=== PATIENT | female | born 1995 | race Caucasian/White ===

== ENCOUNTER 2019-12-13 09:34 | Outpatient (CLI) | payer BC, SELFPAY ==
--- NOTE | 2019-12-13 10:10 | US_ITS ---
WS: [id number] ULTRASOUND EARLY TECHNIQUE: Transabdominal sonography of the pelvis was performed. Followed by transvaginal sonography to better evaluate the uterus and ovaries. CLINICAL INFORMATION: SUPERVISION, OTHER NORMAL LMP: 10/01/2019 Beta hCG: Unknown. COMPARISON: None. FINDINGS: UTERUS AND GESTATIONAL SAC Intrauterine gestations: Estimated gestational age: 9w2d. Estimated delivery 8 19,020 Yolk sac: 0.3 cm. [place] rump length (CRL): 2.6 cm. heart motion: 171 BPM. Subchorionic hemorrhage: None. Movement visualized OVARIES Right ovary: Not seen Left ovary: Left ovarian cyst measuring 1.6 x 1.5 cm FREE FLUID None. 2. Estimated gestational age: 9w2d 3. Movement and cardiac activity visualized. 4. Right ovary is not seen. 1.6 cm left ovarian cyst. US/US OB <= 14 weeks fetus [id number] IMPRESSION: 1. Single live intrauterine .
== END 2019-12-13 09:35 | disposition home or self-care (01) ==
PROVIDERS: Family Provider Family Medicine; PCP Family Medicine; Visit Provider Family Medicine
DX: O34.81 Maternal care for other abnormalities of pelvic organs, first trimester (principal); N83.201 Unspecified ovarian cyst, right side; Z3A.09 9 weeks gestation of pregnancy
CPT/HCPCS: 76801

== ENCOUNTER 2020-02-27 11:05 | Outpatient (CLI) | payer BC, SELFPAY ==
--- NOTE | 2020-02-27 11:00 | US_ITS ---
WS: [id number] ULTRASOUND OB COMPLETE TECHNIQUE: Complete ultrasound. Transabdominal and transvaginal. CLINICAL INFORMATION: SUPERVISION OF NORMAL COMPARISON: December 13, 2019 FINDINGS: Cervix measures 4.3 cm and is closed. Small amount of fluid in the cervix. Single intrauterine gestation is identified with cephalic presentation. Placenta is anterior. Placenta grade 1. Normal amniotic fluid volume. cardiac activity: 144 BPM. AGA: 20w2d KEISHA by ultrasound: 07/14/2020 Estimated weight: 336 g. BDP: 4.8 cm = 20w3d HC: 17.8 cm = 20w2d AC: 14.8 cm = 20w0d FEMUR LENGTH: 3.3 cm = 20w2d Anatomic survey: Anatomic survey is normal. Normal stomach. Kidneys and bladder are normal. Normal 3 vessel cord. Norm al 3 vessel cord insertion. Normal 4 chamber heart. Normal spine. Intracranial contents are normal. N ormal posterior fossa and cisterna magna. US/US OB >=14 wk fetus w transvag IMPRESSION: 1. Single intrauterine with visualized cardiac activity. AGA 20w2d w ith KEISHA 07/14/2020. 2. Placenta is anterior. No evidence of abruption or previa. 3. anatomic survey is normal. 4. Normal amniotic fluid volume. 5. Cervix measures 4.3 cm with a small amount of fluid. Cervix appears closed.
== END 2020-02-27 11:06 | disposition home or self-care (01) ==
LOC: RADWPI 11:10
PROVIDERS: Family Provider Family Medicine; PCP Family Medicine; Visit Provider Family Medicine
DX: Z34.80 Encounter for supervision of other normal pregnancy, unspecified trimester (principal); Z36.89 Encounter for other specified antenatal screening; Z3A.20 20 weeks gestation of pregnancy
CPT/HCPCS: 76805; 76817

== ENCOUNTER 2020-06-16 10:50 | Outpatient (CLI) | payer BC, SELFPAY ==
--- NOTE | 2020-06-16 10:53 | US_ITS ---
WS: [id number] ULTRASOUND OB FOCUSED HISTORY: SUPERVISION, OTHER NORMAL / HEAD POSITION COMPARISON: 02/27/2020 Single intrauterine gestation in cephalic presentation. Cervix is closed measuring 3.3 cm. heart rate at 129 BPM. Placenta is anterior and grade 1. Normal amount of amniotic fluid visually. US/[place] [id number] IMPRESSION: Cephalic presentation.
== END 2020-06-16 10:51 | disposition home or self-care (01) ==
LOC: RAD 10:50
PROVIDERS: Family Provider Family Medicine; PCP Family Medicine; Visit Provider Family Medicine
DX: Z34.90 Encounter for supervision of normal pregnancy, unspecified, unspecified trimester (principal)
CPT/HCPCS: 76816

== ENCOUNTER 2020-07-08 11:46 | Outpatient (CLI) | payer BC, SELFPAY ==
--- NOTE | 2020-07-08 11:56 | US_ITS ---
WS: [id number] ULTRASOUND OB LIMITED TECHNIQUE: Limited ultrasound examination of the fetus. CLINICAL INFORMATION: PRESENTATION, VERTEX,FACE OR BREECH? COMPARISON: June 16, 2020 FINDINGS: Cervix measures 4.5 cm Single interuterine gestation. presentation is vertex Placental location is anterior. Placenta grade: 2 heart rate 122 BPM. US/[place] [id number] IMPRESSION: 1. presentation is vertex 2. Cervix measures 4.5 cm
== END 2020-07-08 11:47 | disposition home or self-care (01) ==
LOC: RAD 11:47
PROVIDERS: Family Provider Family Medicine; PCP Family Medicine; Visit Provider Family Medicine
DX: O32.8XX0 Maternal care for other malpresentation of fetus, not applicable or unspecified (principal)
CPT/HCPCS: 76816

== ENCOUNTER 2020-07-16 06:04 | Inpatient (IN) | payer BC, SELFPAY ==
[2020-07-16] VITALS (101 sets, daily range): BP systolic 0–139; BP diastolic 0–83; PULSE 69–109; RESP 16–18; TEMP 36.4–37.7; O2SAT 97–99; BMI 28.7
[2020-07-16] MEDS: dextrose 5%-lactated ringers 1,000 ML 125 ML IV ×2 (07:11→16:09)
[2020-07-16] MEDS: oxytocin 30 UNIT/500 ML BAG IV (07:11)
[2020-07-16 07:46] LABS: Basophils % 0.3 %; Eosinophils # 0.4 10^3/uL (0.0-0.8); Eosinophils % 3.9 %; Hematocrit 35.9 % (37.0-47.0); Hemoglobin 11.5 g/dL (11.5-15.3); Lymphocytes # 1.9 10^3/uL (0.8-4.8); Lymphocytes % 19.7 %; Mean Corpuscular Hemoglobin 31.3 pg (28.0-34.0); Mean Corpuscular Volume 97.6 fL (81-99); Mean Platelet Volume 10.8 fL (7.4-10.4); Monocytes # 0.8 10^3/uL (0.2-0.9); Monocytes % 8.5 %; Neutrophils % 65.9 %; Nucleated Red Blood Cells % 0 %; Platelet Count 203 10^3/cmm (130-400); Red Blood Count 3.68 10^6/uL (4.1-5.3); White Blood Count 9.4 10^3/uL (4.0-10.0)
--- NOTE | 2020-07-16 08:33 | PM.HP ---
Providers/Chief Complaint Admitting Physician: Lul Trotter MD Primary Care Provider: Lul Trotter MD History of Present Illness Kathy eBrrios is a 24 year old G4, P2 at 40.1 weeks gestation by 9-week ultrasound inconsistent with LMP. Her is complicated by history of L1 fracture, short interval gestational spacing, history of cervical laceration, anemia. The patient is currently feeling well. She denies any chest pains, shortness of breath, fever, leakage of fluid, vaginal bleeding. Overall she feels well. The patient presents for a scheduled induction of labor secondary to postdates. Medications/Allergies Home Medications Medication Instructions Recorded Confirmed Last Taken Type ferrous sulfate 325 mg PO DAILY 07/16/20 07/16/20 Unknown History [id number] 1 tab PO DAILY 07/16/20 07/16/20 07/15/20 History [ Multi] 0700 sertraline 25 mg PO DAILY 07/16/20 07/16/20 07/15/20 History 0700 sertraline 25 mg PO DAILY 07/16/20 07/16/20 07/15/20 History 0700 Allergies Allergy/AdvReac Type Severity Reaction Status Date / Time No Known Allergies Allergy Verified 07/16/20 07:49 PFSH Acute PFSH: Medical History (Updated 07/16/20 @ 08:35 by Lul Trotter MD) Lumbar vertebral fracture Surgical History (Updated 07/16/20 @ 08:35 by Lul Trotter MD) Hx of tonsillectomy Social History (Updated 07/16/20 @ 08:36 by Lul Trotter MD) Smoking and tobacco status: never smoked Alcohol intake: never Substance/Drug Use: never Female Reproductive History: : 4 Vitals/I&O/Wt Last Vital Signs Temp 98.0 F 07/16/20 07:00 Pulse 96 07/16/20 06:20 Resp 16 07/16/20 07:00 BP 124/64 07/16/20 06:20 07/15/20 07/16/20 07/16/20 22:59 06:59 14:59 Intake Total 2.95 / 2.95 Balance 2.95 / 2.95 Weight last 48 hrs Weight 200 lb Weight 200 lb Physical Exam Narrative: EXAM NARRATIVE: General: Alert and oriented x3 Eyes: Pupils equal round and reactive to light and accommodation Mouth: Mucous membranes moist, pharynx non-erythematous Cardiac: Regular rate and rhythm without murmurs Lungs: Clear to auscultation bilaterally without wheezes, crackles or rhonchi Abdomen: Soft, non-tender, fundus consistent with gestational age Extremities: Trace edema in the bilateral lower extremities Data : 07/16/20 07:05 A&P Additional A&P Information The patient is currently doing well. heart tones are in the mid 130s with moderate variability and good accelerations with a category 1 tracing. Contractions are currently every 3 to 4 minutes. The patient is on IV Pitocin for induction of labor. We will proceed with routine intrapartum care. All questions were answered. The patient and her are in agreement with the current plan of care. Attestations Medical Necessity Statement*: The patient will be here for greater than 2 midnights due to routine intrapartum and management of labor and delivery. Coding Level of Care Code Acute Continuous Mining Operator for Edenilson Arana
[2020-07-16] MEDS: lactated ringers 1,000 ML 999 ML IV ×2 (12:46→18:24)
--- NOTE | 2020-07-16 14:37 | ANES.PROC ---
Anesthesia Procedures Procedure/Date: 07/16/20 Epidural: Consents Signed: Procedure Consent and NPO Consent Consent: requested by attending/covering physician, from patient, risks and benefits reviewed and patient agrees to proceed Lumbar Level: L3-L4 Epidural position: sitting Epidural procedure: sterile prep of area, 1% lidocaine to numb the area, 18 g needle, negative for paresthesia passed, neg for paresthesia, test dose given, 1.5% xylocaine 1:200k epi (3 cc), placed PCEA, no systemic response, sterile dressing applied, L.U.D. no apparent complications and 0.2% Ropiavacaine @ mls/hr (13) Additional Comments: Patient stated she fractured her L1 and every epidural she's had has had to be redone and works when replaced at a higher level. Attempted L2-3, hit bone SAVANNA at 6 cm at L3-4, threaded to 12 cm. Bupi 0.25% 8 cc/ w fentanyl 100 mcg given and 3 pain free contractions followed. Pump started
--- NOTE | 2020-07-16 18:40 | PC.NURSE ---
1805 Dr. Trotter at bedside and performed amniotomy. Clear fluid noted. Position change at 1815 to left lateral. Pitocin titrated at 10 miliunits/min at 1820. 182 10L oxygen administered via non rebreather mask, 182 position changed to right lateral and pitocin discontinued. 182 500 mL bolus LR started. 182 high fowlers position change.
--- NOTE | 2020-07-16 19:18 | PM.DELIVERY ---
Delivery Note: Date of delivery: July 16, 2020 Pre-delivery diagnoses: 1. Intrauterine at 40.1 weeks gestation 2. History of L1 fracture 3. Short interval gestational spacing 4. History of cervical laceration 5. Anemia Post-delivery diagnoses: 1. Intrauterine status post spontaneous vaginal delivery at 40.1 weeks gestation 2. History of L1 fracture 3. Short interval gestational spacing 4. History of cervical laceration 5. Anemia 6. Delivery of healthy male weighing 9 pounds 0 ounces with Apgars of 8 and 9 Procedure: Spontaneous vaginal delivery Op report anesthesia: Epidural Delivering Physician: Lul Trotter MD Estimated blood loss (mL): 200 Findings: Kathy Berrios is a 24 year old G4 now P3 status post spontaneous vaginal delivery at 40.1 weeks gestation by 9-week ultrasound inconsistent with LMP. Her was complicated by history of L1 fracture, short interval gestational spacing, history of cervical laceration, anemia. Pre-Delivery Course: The patient presented to labor and delivery secondary to a scheduled induction for postdates at 6 AM on 07/16/2020. The patient was in her normal state of health upon admission. She was 2 cm dilated and was started on IV Pitocin. The patient made good change with Pitocin. She received a laboring epidural and had good anesthesia with it. The patient got to 8 cm and was no longer making good change, and the head was well applied with a bulging bag of fluid, so AROM was performed at 1805 on 07/16/2020. Following AROM, repetitive late decelerations were present, so the fluid bolus was given, IV Pitocin was stopped and position changes were done. The patient was placed on oxygen. heart tones had good variability, however stayed in the 100-120 range. She continued to make change and was complete by approximately 1845. Delivery: The patient began pushing at 1848 on 07/16/2020. The patient pushed well and the infant delivered in the OA position at 1853 on 07/16/2020. There was no nuchal cord. The right shoulder was the anterior shoulder and it delivered with steady downward pressure. Rest of the infant delivered with ease. The father did scrub in and the was delivered into his hands. The infant was placed on the mother's chest where his mouth and nose were bulb suctioned. The infant was crying immediately upon delivery. The 's cord was clamped by myself approximately 1 minute after delivery and cut by the 's father. Cord was then drained of blood and traction was placed on the umbilical cord. IV Pitocin was bolused. The placenta delivered at 1856 without complication. The placenta was noted to be intact with a central umbilical cord insertion site. The cervix was inspected and no lacerations were noted. The vaginal wall was inspected and no lacerations were noted. The uterus was noted to be firm and midline. Initially bleeding was mild to moderate and then very little. Her bleeding has picked up and so a one-time dose of 800 mcg of Cytotec was placed rectally. We will continue to watch for any signs of further bleeding that is more than expected. Currently both the mother and infant are doing very well. A&P Assessment and plan (1) Intrauterine : Status: Acute Coding Level of Care Code Acute Pharmacy Affairs Assistant for Edenilson Arana Diagnoses Intrauterine Z34.90
[2020-07-16] MEDS: miSOPROStol 200 mcg Tablet 800 MCG PR (19:20)
[2020-07-16] MEDS: oxytocin 30 UNIT/500 ML BAG 125 UNIT IV (19:30)
[2020-07-16] MEDS: lanolin oint 7 gm 1 APPLIC TOPICAL (19:36)
[2020-07-16] MEDS: benzocaine-menthol 78 gm Canister 1 SPRAY TOPICAL (19:37)
[2020-07-17 00:45] VITALS: BP 114/67; PULSE 98; RESP 17; TEMP 37.3
[2020-07-17 02:45] VITALS: BP 116/72; PULSE 91; RESP 17; TEMP 37.3
[2020-07-17 04:40] VITALS: BP 123/75; PULSE 87; RESP 18; TEMP 36.9
[2020-07-17] MEDS: HYDROcodone-acetaminophen 5-325 mg Tablet PO ×3 (04:46→20:50)
[2020-07-17 08:19] LABS: Hemoglobin 11.2 g/dL (11.5-15.3); Mean Corpuscular HGB Conc 33.9 g/dL (30.0-36.0); Mean Corpuscular Hemoglobin 31.3 pg (28.0-34.0); Mean Corpuscular Volume 92.2 fL (81-99); Mean Platelet Volume 10.8 fL (7.4-10.4); Platelet Count 191 10^3/cmm (130-400); Red Blood Count 3.58 10^6/uL (4.1-5.3); Red Cell Distribution Width 14.7 % (12.1-15.1); White Blood Count 15.2 10^3/uL (4.0-10.0)
[2020-07-17] MEDS: prenatal vitamin Capsule 1 CAP PO (08:21)
[2020-07-17] MEDS: docusate sodium 100 mg Capsule PO ×2 (08:21→18:06)
[2020-07-17 09:58] VITALS: BP 111/70; PULSE 80; RESP 16; TEMP 36.7; O2SAT 97
[2020-07-17] MEDS: acetaminophen 325 mg Tablet 650 MG PO (11:11)
--- NOTE | 2020-07-17 15:04 | P.PN_ITS ---
Subjective Subjective: Interval history: The patient is feeling well at this time. She is ambulating, voiding, passing gas and tolerating food by mouth. Her bleeding is decreasing well. The patient's pain is worse with contractions while breast- feeding. Otherwise her pain is doing well. Vitals/I&O/Wt Last Vital Signs Temp 98.0 F 07/17/20 09:58 Pulse 80 07/17/20 09:58 Resp 16 07/17/20 09:58 BP 111/70 07/17/20 09:58 Pulse Ox 97 07/17/20 09:58 07/17/20 07/17/20 07/17/20 06:59 14:59 22:59 Intake Total 500 / 3175.617 Balance 500 / 1975.617 Weight last 48 hrs Weight 200 lb Weight 200 lb Physical Exam Narrative: EXAM NARRATIVE: General: Alert and oriented x3 Cardiac: Regular rate and rhythm without murmurs Lungs: Clear to auscultation bilaterally without wheezes, crackles or rhonchi Abdomen: Soft, mild tenderness over the uterus. Uterus is firm and midline 3 cm below the umbilicus. Extremities: Trace edema in the bilateral lower extremities Urinary Catheter Management^: Carr: Cath Placed During This Visit: yes, but has since been removed by the nurse Reason for Continuing Indwelling Catheter: Decision to DC Catheter Urinary Catheter Date of Insertion: 07/16/20 Urinary Catheter Time of Insertion: 14:30 Date Urinary Catheter Removed: 07/16/20 Time Urinary Catheter Discontinued: 18:46 Data : 07/17/20 08:00 A&P Additional A&P Information The patient is doing well overall . Her bleeding is decreasing well. Her pain is well managed. She is ambulating, voiding, passing gas and tolerating food by mouth. Overall she is showing no signs of complications at this time. Plan for discharge home over the next 1 to 2 days. Attestations Medical Necessity Statement*: Patient will be have greater than 2 minutes due to routine intrapartum and management of labor and delivery. Coding Level of Care Code Acute Security Systems Administrator for Edenilson Arana
[2020-07-17 22:00] VITALS: BP 114/59; PULSE 85; RESP 16; TEMP 37.1; O2SAT 98
[2020-07-18] MEDS: acetaminophen 325 mg Tablet 650 MG PO (00:17)
[2020-07-18 04:51] VITALS: BP 89/49; PULSE 62; RESP 16; O2SAT 98
--- NOTE | 2020-07-18 08:52 | P.DS_ITS ---
Discharge Providers Date of Admission: 07/16/20 06:04 Date of Discharge: July 18, 2020 Attending Provider at Admission: Lul Trotter MD Attending Provider at Discharge: Lul Trotter MD Primary Care Provider: Lul Trotter MD Diagnoses at Discharge Discharge Diagnosis (1) Intrauterine : Status: Acute Other Information Additional DC diagnoses/information: 1. Intrauterine status post spontaneous vaginal delivery at 40.1 weeks gestation 2. History of L1 fracture 3. Short interval gestational spacing 4. History of cervical laceration 5. Anemia 6. Delivery of healthy male weighing 9 pounds 0 ounces with Apgars of 8 and 9 Hospital Course Hospital Course: Katyh Berrios is a 24 year old G4 now P3 status post spontaneous vaginal delivery at 40.1 weeks gestation by 9-week ultrasound inconsistent with LMP. Her was complicated by history of L1 fracture, short interval gestational spacing, history of cervical laceration, anemia. Pre-Delivery Course: The patient presented to labor and delivery secondary to a scheduled induction for postdates at 6 AM on 07/16/2020. The patient was in her normal state of health upon admission. She was 2 cm dilated and was started on IV Pitocin. The patient made good change with Pitocin. She received a laboring epidural and had good anesthesia with it. The patient got to 8 cm and was no longer making good change, and the head was well applied with a bulging bag of fluid, so AROM was performed at 1805 on 07/16/2020. Following AROM, repetitive late decelerations were present, so the fluid bolus was given, IV Pitocin was stopped and position changes were done. The patient was placed on oxygen. heart tones had good variability, however stayed in the 100-120 range. She continued to make change and was complete by approximately 1845. Delivery: The patient began pushing at 1848 on 07/16/2020. The patient pushed well and the delivered in the OA position at 1853 on 07/16/2020. There was no nuchal cord. The right shoulder was the anterior shoulder and it delivered with steady downward pressure. Rest of the infant delivered with ease. The father did scrub in and the infant was delivered into his hands. The infant was placed on the mother's chest where his mouth and nose were bulb suctioned. The infant was crying immediately upon delivery. The infant's cord was clamped by myself approximately 1 minute after delivery and cut by the 's father. Cord was then drained of blood and traction was placed on the umbilical cord. IV Pitocin was bolused. The placenta delivered at 1856 without complication. The placenta was noted to be intact with a central umbilical cord insertion site. The cervix was inspected and no lacerations were noted. The vaginal wall was inspected and no lacerations were noted. The uterus was noted to be firm and midline. Initially bleeding was mild to moderate and then very little. Her bleeding has picked up and so a one-time dose of 800 mcg of Cytotec was placed rectally. With this the patient's bleeding decreased adequately. : The patient has done well . Her pain is improving well. She is ambulating, voiding, passing gas and tolerating food by mouth. The patient is breast-feeding and this is going well overall although she does have some soreness. will continue to work with her on this. Overall the patient is ready to be discharged. All questions were answered. Routine instructions were given. Physical Exam Narrative: EXAM NARRATIVE: General: Alert and oriented x3 Cardiac: Regular rate and rhythm without murmurs Lungs: Clear to auscultation bilaterally without wheezes, crackles or rhonchi Abdomen: Soft, mild tenderness over the uterus. Uterus is firm and midline 3 cm below the umbilicus. Extremities: Trace edema in the bilateral lower extremities Urinary Catheter Management^: Carr: Cath Placed During This Visit: yes, but has since been removed by the nurse Reason for Continuing Indwelling Catheter: Decision to DC Catheter Urinary Catheter Date of Insertion: 07/16/20 Urinary Catheter Time of Insertion: 14:30 Date Urinary Catheter Removed: 07/16/20 Time Urinary Catheter Discontinued: 18:46 Discharge Data Vitals: Last Vital Signs Temp 98.7 F 07/17/20 22:00 Pulse 62 07/18/20 04:51 Resp 16 07/18/20 04:51 BP 89/49 07/18/20 04:51 Pulse Ox 98 07/18/20 04:51 Discharge Plan Discharge Patient Disposition: Home Condition: Good Prescriptions: New hydrocodone-acetaminophen 5-325 mg Tablet 1 tab PO Q6H PRN (Reason: Moderate To Severe Pain) Qty: 10 RF: 0 ibuprofen 800 mg Tablet 800 mg PO TID Qty: 60 RF: 0 Continued ferrous sulfate 325 mg (65 mg iron) tablet 325 mg PO DAILY RF: 0 sertraline 25 mg tablet 25 mg PO DAILY RF: 0 Multi 27-800 mg-mcg Tablet 1 tab PO DAILY RF: 0 Discontinued sertraline 25 mg tablet 25 mg PO DAILY RF: 0 Discharge Orders: Discharge Order (Routine); Ordered 07/18/20 Ordered By: Lul Trotter Referrals: Lul Trotter MD [Primary Care Provider] - 6 Weeks Discharge Diet: Usual diet Discharge Activity: Increase activity as tolerated Activity Restrictions/Additional Instructions: Nothing per vagina for 6 weeks. No baths or swimming for 6 weeks. Showers are okay. If you have any concerns, please return for a sooner appointment. 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
[2020-07-18] MEDS: prenatal vitamin Capsule 1 CAP PO (09:20)
[2020-07-18] MEDS: docusate sodium 100 mg Capsule PO (09:20)
[2020-07-18 09:25] VITALS: BP 106/69; PULSE 73; RESP 16; TEMP 36.4; O2SAT 99
[2020-07-18] MEDS: HYDROcodone-acetaminophen 5-325 mg Tablet PO ×2 (09:45→10:59)
[2020-07-18 12:53] VITALS: BP 116/52; PULSE 79; RESP 17; TEMP 36.4; O2SAT 97
== END 2020-07-18 12:55 | disposition home or self-care (01) | DRG 807 ==
PROVIDERS: Admitting Provider Family Medicine; PCP Family Medicine; Visit Provider Family Medicine
DX: O48.0 Post-term pregnancy (principal); Z37.0 Single live birth; Z3A.40 40 weeks gestation of pregnancy; O99.02 Anemia complicating childbirth; D64.9 Anemia, unspecified; O76 Abnormality in fetal heart rate and rhythm complicating labor and delivery
CPT/HCPCS: 12345; 36415; 51702; 59025; 59409; 85025; 85027; J2795

== ENCOUNTER → 2020-10-03 17:34 | Outpatient (BNVA) | payer BC, SELFPAY | PROVIDERS: PCP Family Medicine; Visit Provider Nurse Practitioner | DX: M25.532 Pain in left wrist (principal) | CPT/HCPCS: 73110 ==

== ENCOUNTER 2021-08-12 13:16 | Outpatient (CLI) | payer BC, SELFPAY ==
[2021-08-12 14:16] LABS: Progesterone 1.91 ng/mL
== END 2021-08-12 13:17 | disposition home or self-care (01) ==
PROVIDERS: PCP Family Medicine; Visit Provider Family Medicine
DX: O46.91 Antepartum hemorrhage, unspecified, first trimester (principal)
CPT/HCPCS: 84144; 84702

== ENCOUNTER → 2022-04-04 12:14 | Outpatient (BNVA) | payer OTHER, SELFPAY | PROVIDERS: PCP Family Medicine; Visit Provider Family Medicine | DX: Z34.80 Encounter for supervision of other normal pregnancy, unspecified trimester (principal) | CPT/HCPCS: 82950 ==

== ENCOUNTER → 2022-05-05 13:29 | Outpatient (BNVA) | payer OTHER, SELFPAY | PROVIDERS: PCP Family Medicine; Visit Provider Family Medicine | DX: Z34.80 Encounter for supervision of other normal pregnancy, unspecified trimester (principal) | CPT/HCPCS: 83735; 84132; 85025 ==

== ENCOUNTER → 2022-06-23 12:00 | Outpatient (BNVA) | payer OTHER, SELFPAY | PROVIDERS: PCP Family Medicine; Visit Provider Family Medicine | DX: Z34.90 Encounter for supervision of normal pregnancy, unspecified, unspecified trimester (principal) | CPT/HCPCS: 87081 ==

== ENCOUNTER 2022-07-16 00:53 | Inpatient (IN) | payer OTHER, SELFPAY ==
[2022-07-15] VITALS (32 sets, daily range): BP systolic 98–131; BP diastolic 51–77; PULSE 85–118; RESP 16–17; TEMP 36.8
[2022-07-15 12:28] LABS: Basophils % 0.2 %; Eosinophils # 0.2 10^3/uL (0.0-0.8); Hematocrit 36.3 % (37.0-47.0); Lymphocytes % 18.9 %; Mean Corpuscular HGB Conc 33.1 g/dL (30.0-36.0); Mean Corpuscular Hemoglobin 31.6 pg (28.0-34.0); Mean Corpuscular Volume 95.5 fl (81-99); Mean Platelet Volume 11.3 fL (7.4-10.4); Monocytes # 0.8 10^3/uL (0.2-0.9); Monocytes % 7.6 %; Neutrophils # 7.54 10^3/uL (1.8-7.7); Nucleated Red Blood Cells % 0 %; Platelet Count 231 10^3/cmm (130-400); Red Cell Distribution Width 13.9 % (12.1-15.1); White Blood Count 10.8 10^3/uL (4.0-10.0)
[2022-07-15] MEDS: miSOPROStol 100 mcg tablet 25 MCG VAGINAL (12:40)
--- NOTE | 2022-07-15 14:42 | PM.HP ---
Providers/Chief Complaint Primary Care Provider: Lul Trotter MD Chief Complaint: INDUCTION History of Present Illness Kathy Berrios is a 26 year old @ 39.0 wks by 8 wk US c/w unsure LMP. Preg c/b h/o L1 fracture, short intergestational spacing, h/o cervical laceration, h/o anemia, anxiety/depression on Sertraline, ASCUS, low lying placenta in 2nd TM - now resolved. The patient presents for a scheduled elective induction due to history of large 's. The patient is feeling well today. She denies any chest pains, shortness of breath, fevers, cough, nausea, vomiting, diarrhea, constipation, dysuria, leakage of fluid, vaginal bleeding, contractions. In OB she was noted to be 3. Medications/Allergies Home Medications Medication Instructions Recorded Confirmed Last Taken Type fluticasone propionate 50 1 spray intranasal BID allergies 04/08/22 07/11/22 Unknown Rx mcg/actuation nasal #16 grams spray,suspension loratadine 10 mg capsule 10 mg PO DAILY alergies #30 caps 06/17/22 07/11/22 Unknown Rx sertraline 50 mg tablet 50 mg PO DAILY 06/23/22 07/11/22 Unknown History Allergies Allergy/AdvReac Type Severity Reaction Status Date / Time No Known Allergies Allergy Verified 07/15/22 12:25 PFSH Acute PFSH: Medical History (Updated 07/15/22 @ 14:45 by Lul Trotter MD) Allergic rhinitis due to allergen Lumbar vertebral fracture Surgical History Hx of tonsillectomy Social History Smoking and tobacco status: never smoked Alcohol intake: never Female Reproductive History: : 6 Vitals/I&O/Wt Last Vital Signs Pulse 88 07/15/22 13:48 BP 109/54 07/15/22 13:48 Physical Exam Narrative: General: Alert and oriented x3 Eyes: Pupils equal round and reactive to light and accommodation Mouth: Mucous membranes moist, pharynx non-erythematous Cardiac: Regular rate and rhythm without murmurs Lungs: Clear to auscultation bilaterally without wheezes, crackles or rhonchi Abdomen: Soft, non-tender, fundus consistent with gestational age Extremities: Trace edema in the bilateral lower extremities Data : 07/15/22 11:35 A&P Assessment and plan (1) Supervision of normal intrauterine in multigravida: The patient is doing well today. heart tones show a category 1 tracing. The patient is only 1 cm dilated. We will start her on Cytotec. Advance to Pitocin once the Fuller score is progressing to 5 or 6. The patient is GBS negative. All questions were answered. The patient and her are in agreement with current plan of care. Status: Acute Attestations Medical Necessity Statement*: The patient will be here for greater than 2 midnights due to routine intrapartum and management of labor and delivery. Coding Level of Care Code Acute Digital Analytics Manager for Edenilson Arana Diagnoses Supervision of normal intrauterine in multigravida Z34.80
[2022-07-15 15:46] LABS: Rubella IgG 226.7 IU/mL (0.0-10.0)
[2022-07-15] MEDS: dextrose 5%-lactated ringers 1,000 ML 125 ML IV (17:25)
[2022-07-15] MEDS: oxytocin 30 UNIT/500 ML BAG IV (17:26)
[2022-07-16] VITALS (109 sets, daily range): BP systolic 94–143; BP diastolic 52–79; PULSE 94–129; RESP 16–18; TEMP 36.2–37; O2SAT 89–100
[2022-07-16] MEDS: butorphanol 2 mg/mL SDV 1 mL 1 MG IVP (00:24)
[2022-07-16] MEDS: lactated ringers 1,000 ML 999 ML IV ×2 (00:28→02:10)
--- NOTE | 2022-07-16 02:10 | P.ANESUD_ITS ---
Pre-Anesthetic Update Pre-Anesthetic Assessment: Date of Surgery/Procedure: 07/16/22 Preop Cherelle gnosis: IUP Proposed Procedure: epidural Any changes to Pre-Anesthetic Assessment?: No Changes from Pre- Anesthetic Assessment: none Labs Last 48hrs: Short CBC 07/15/22 Range/Units 11:35 WBC 10.8 H (4.0-10.0) 10^3/ uL Hgb 12.0 (11.5-15.3) g/dL Hct 36.3 L (37.0-47.0) % MCV 95.5 (81-99) fl Plt Count 231 (130-400) 10^3/c mm Neut % (Auto) 70.0 % Neut # (Auto) 7.54 (1.8-7.7) 10^3/u L Vitals: Temperature 98.2 F 07/15/22 18:04 Pulse Rate 109 H 07/16/22 01:56 Respiratory Rate 16 07/15/22 18:02 Respiratory Effort Non-Labored 07/15/22 10:05 Respiratory Depth Normal 07/15/22 10:05 Respiratory Patter n 07/15/22 10:05 Blood Pressure 143/63 07/16/22 01:56 Oxygen Delivery Me thod 07/15/22 10:05 Exam: Pre-Anes Outpt Exam: alert, oriented x 3, clear to auscultation bilaterally and regular rate & rhythm Cardiac Studies: No Data to Display
[2022-07-16] MEDS: ondansetron 2 mg/ML SDV 2 mL 4 MG IVP (02:22)
[2022-07-16] MEDS: dextrose 5%-lactated ringers 1,000 ML 125 ML IV (03:09)
--- NOTE | 2022-07-16 03:19 | ANES.PROC ---
Anesthesia Procedures Procedure/Date: 07/16/22 epidural Procedure Narrative: epidural complete, bolus given, epidural pump initiated with PASSENGER SERVICE AGENT education given with 100 mcg of fentanyl given, vitals taken during procedure using OBIX system and satisfactory throughout, patient admits to decrease pain, report of procedure to OB RN Epidural: Time Out Performed: Yes Consents Signed: Procedure Consent Consent: requested by attending/covering physician, from patient, risks and benefits reviewed and patient agrees to proceed Lumbar Level: L3-L4 Epidural position: sitting Epidural procedure: sterile prep of area, 1% lidocaine to numb the area (3 mL), 18 g needle, negative for paresthesia passed, neg for paresthesia, test dose given, 1.5% xylocaine 1:200k epi (5 mL), 0.2% Ropivacaine bolus ml (5 mL), placed PCEA, no systemic response, sterile dressing applied, L.U.D. no apparent complications and 0.2% Ropiavacaine @ mls/hr (13 mL/hr)
--- NOTE | 2022-07-16 03:39 | P.PN_ITS ---
Vitals/I&O/Wt Last Vital Signs Temp 98.2 F 07/15/22 18:04 Pulse 110 H 07/16/22 03:35 Resp 16 07/15/22 18:02 BP 122/63 07/16/22 03:35 Pulse Ox 100 07/16/22 03:36 O2 Del Method 07/15/22 10:05 07/15/22 07/15/22 07/16/22 14:59 22:59 06:59 Intake Total 29.733 / 29.733 1999 Balance 29.733 / 29.733 1999 Weight last 48 hrs Weight 97.522 kg Physical Exam Const: COMMON NORMALS: alert Resp: COMMON NORMALS: clear to auscultation bilaterally AUSCULTATION: clear to auscultation bilaterally Neuro: SENSORIUM/ORIENTATION: Yes alert Data : 07/15/22 11:35 Other data: Patient epidural assessed, patients states legs are numb but contractions are still very painful, patient was then given 2% PF lidocaine, patient states pain has decreased Attestations Medical Necessity Statement*: epidural running Coding Level of Care Code Acute Numerical Tool Programmer for [facility]ilson Fwd Comment
--- NOTE | 2022-07-16 05:34 | P.PCNOB_ITS ---
Delivery Note: Date of delivery: July 16, 2022 Pre-delivery diagnoses: 1. Intrauterine at 39.1 weeks gestation 2. Short interval gestational spacing 3. History of cervical laceration 4. Anxiety on sertraline 5. ASCUS 6. Low-lying placenta and second trimester now resolved Post-delivery diagnoses: 1. Intrauterine status post spontaneous vaginal delivery at 39.1 weeks gestation 2. Short interval gestational spacing 3. History of cervical laceration 4. Anxiety on sertraline 5. Delivery of healthy infant female weighing 9 pounds 0 ounces (4080g) with Apgars of 8 and 9 Procedure: Spontaneous vaginal delivery Delivering Physician: Lul Trotter MD Findings: Delivery of healthy female weighing 9 pounds 0 ounces with Apgars of 8 and 9 Intact placenta with peripheral umbilical cord insertion site Pre-Delivery Course: Kathy is a 26 y/o G6 now P4 status post spontaneous vaginal delivery @ 39.1 wks by 8 wk US c/w unsure LMP. Preg c/b h/o L1 fracture, short intergestational spacing, h/o cervical laceration, h/o anemia, anxiety/depression on Sertraline, ASCUS, low lying placenta in 2nd TM. The patient presented for elective induction of labor due to having large for gestational age in the past. She was 1 cm dilated upon presentation. The patient was started on Cytotec at approximately noon on 07/15/2022. The patient made change to 2 cm and her Fuller score was 7. IV Pitocin was started and she made gradual change from there. SROM took place at 2336 on 07/15/2022. The patient received a laboring epidural. She made gradual change and was complete by 4:30 AM on 07/16/2022. Delivery: The patient began pushing at 4:42 AM on 07/16/2022. The patient pushed well and the infant delivered in the OA position at 5:10 AM on 07/16/2022. The left shoulder was the anterior shoulder and it delivered with mild downward pressure. A nuchal cord was present and the infant was delivered through this. It was loose in nature. The rest the delivered without complication. The infant's mouth and nose were bulb suctioned by myself. The infant was crying immediately upon delivery. The infant was placed on the mother's chest where the nurses were waiting to care for her. The cord was clamped by myself and cut by the 's father. Cord blood was obtained and the cord was then drained of blood. Traction was then placed on umbilical cord and the uterus was massaged. The placenta delivered without complication at 5:16 AM on 07/16/2022. The placenta was noted to be intact with a peripheral umbilical cord insertion site. The uterus was massaged and the patient's bleeding was mild to moderate in nature. The cervix was inspected and no lacerations were noted. The vaginal wall was inspected and no lacerations were noted. Currently the bleeding is History History History 6 Term 4 0 Miscarriages/Ectopic 2 Living Children 4 A&P Assessment and plan (1) Spontaneous vaginal delivery: Status: Acute Coding Level of Care Code Acute Outsole Skiver for Chg Fwd Diagnoses Spontaneous vaginal delivery O80
[2022-07-16] MEDS: docusate sodium 100 mg Capsule PO ×2 (07:56→18:14)
[2022-07-16] MEDS: ibuprofen 800 mg tablet PO ×3 (07:56→21:22)
[2022-07-16] MEDS: prenatal vitamin Capsule 1 CAP PO (07:57)
--- NOTE | 2022-07-16 08:14 | ANE.PACU2 ---
Inpatient post-anesthesia follow up: Airway intact: Yes Vital signs: Temperature 97.9 F Pulse Rate 114 Respiratory Rate 17 Blood Pressure 113/56 Pulse Oximetry 97 Oxygen Delivery Me thod Room Air Oxygen Flow Rate Fraction of Inspir ed Oxygen Hydration adequate: Yes Nausea and vomiting: No Pain level: 2 Mental status: Baseline
[2022-07-16 18:28] LABS: Hematocrit 28.9 % (37.0-47.0); Hemoglobin 9.6 g/dL (11.5-15.3); Mean Corpuscular HGB Conc 33.2 g/dL (30.0-36.0); Mean Corpuscular Hemoglobin 31.8 pg (28.0-34.0); Mean Corpuscular Volume 95.7 fl (81-99); Mean Platelet Volume 11.3 fL (7.4-10.4); Platelet Count 198 10^3/cmm (130-400); Red Blood Count 3.02 10^6/uL (4.1-5.3); White Blood Count 14.8 10^3/uL (4.0-10.0)
[2022-07-16] MEDS: acetaminophen 325 mg Tablet 650 MG PO (19:48)
[2022-07-17 04:00] VITALS: BP 108/61; PULSE 75; RESP 16; O2SAT 97
[2022-07-17] MEDS: ibuprofen 800 mg tablet PO (08:17)
[2022-07-17] MEDS: docusate sodium 100 mg Capsule PO (08:17)
[2022-07-17] MEDS: prenatal vitamin Capsule 1 CAP PO (08:17)
--- NOTE | 2022-07-17 09:59 | PM.DCS ---
Discharge Providers Date of Admission: 07/16/22 00:53 Date of Discharge: July 17, 2022 Attending Provider at Admission: Lul Trotter MD Attending Provider at Discharge: Lul Trotter MD Primary Care Provider: Lul Trotter MD Diagnoses at Discharge Discharge Diagnosis (1) Spontaneous vaginal delivery: Details from hospital stay: 1.? Intrauterine status post spontaneous vaginal delivery at 39.1 weeks gestation 2.? Short interval gestational spacing 3.? History of cervical laceration 4.? Anxiety on sertraline 5.? Delivery of healthy female weighing 9 pounds 0 ounces (4080g) with Apgars of 8 and 9? Status: Acute Reason for Visit Reason for Visit: INDUCTION Hospital Course Hospital Course Kathy is a 26 y/o G6 now P4 status post spontaneous vaginal delivery @ 39.1 wks by 8 wk US c/w unsure LMP. Preg c/b h/o L1 fracture, short intergestational spacing, h/o cervical laceration, h/o anemia, anxiety/depression on Sertraline, ASCUS, low lying placenta in 2nd TM. The patient presented for elective induction of labor due to having large for gestational age in the past.? She was 1 cm dilated upon presentation.? The patient was started on Cytotec at approximately noon on 07/15/2022.? The patient made change to 2 cm and her Fuller score was 7.? IV Pitocin was started and she made gradual change from there.? SROM took place at 2336 on 07/15/2022.? The patient received a laboring epidural.? She made gradual change and was complete by 4:30 AM on 07/16/2022. The patient began pushing at 4:42 AM on 07/16/2022.? The patient pushed well and the infant delivered in the OA position at 5:10 AM on 07/16/2022.? The left shoulder was the anterior shoulder and it delivered with mild downward pressure.? A nuchal cord was present and the infant was delivered through this.? It was loose in nature.? The rest the infant delivered without complication.? The infant's mouth and nose were bulb suctioned by myself.? The was crying immediately upon delivery.? The was placed on the mother's chest where the nurses were waiting to care for her.? The cord was clamped by myself and cut by the infant's father.? Cord blood was obtained and the cord was then drained of blood.? Traction was then placed on umbilical cord and the uterus was massaged.? The placenta delivered without complication at 5:16 AM on 07/16/2022.? The placenta was noted to be intact with a peripheral umbilical cord insertion site.? The uterus was massaged and the patient's bleeding was mild to moderate in nature.? The cervix was inspected and no lacerations were noted.? The vaginal wall was inspected and no lacerations were noted.? the patient is doing well. She is having no significant complications. Her bleeding is slowing down well. She is ambulating, voiding, passing gas and tolerating food by mouth. Her pain is moderate in nature and medications are helping moderately well. She does have a fair amount of pain in her sacral region. She is also having symptoms of congestion and a sore throat. She is doing well otherwise. Physical Exam Narrative: General: Alert and oriented x3 Cardiac: Regular rate and rhythm without murmurs Lungs: Clear to auscultation bilaterally without wheezes, crackles or rhonchi Abdomen: Soft, mild tenderness over uterus. The uterus is firm and 2 cm below the umbilicus. Extremities: Trace edema in the bilateral lower extremities Urinary Catheter Management: Carr: Cath Placed During This Visit: yes, but has since been removed by the nurse Reason for Continuing Indwelling Catheter: Decision to DC Catheter Urinary Catheter Date of Insertion: 07/16/22 Urinary Catheter Time of Insertion: 03:55 Date Urinary Catheter Removed: 07/16/22 Time Urinary Catheter Discontinued: 04:40 Discharge Data Studies Completed and Pending Laboratory Results WBC 14.8 10^3/uL (4.0-10.0) H 07/16/22 18:20 RBC 3.02 10^6/uL (4.1-5.3) L 07/16/22 18:20 Hgb 9.6 g/dL (11.5-15.3) L 07/16/22 18:20 Hct 28.9 % (37.0-47.0) L 07/16/22 18:20 MCV 95.7 fl (81-99) 07/16/22 18:20 MCH 31.8 pg (28.0-34.0) 07/16/22 18:20 MCHC 33.2 g/dL (30.0-36.0) 07/16/22 18:20 RDW 14.0 % (12.1-15.1) 07/16/22 18:20 Plt Count 198 10^3/cmm (130-400) 07/16/22 18:20 MPV 11.3 fL (7.4-10.4) H 07/16/22 18:20 Neut % (Auto) 70.0 % 07/15/22 11:35 Lymph % (Auto) 18.9 % 07/15/22 11:35 [place] % (Auto) 7.6 % 07/15/22 11:35 Eos % (Auto) 2.0 % 07/15/22 11:35 Baso % (Auto) 0.2 % 07/15/22 11:35 Neut # (Auto) 7.54 10^3/uL (1.8-7.7) 07/15/22 11:35 Lymph # (Auto) 2.0 10^3/uL (0.8-4.8) 07/15/22 11:35 [place] # (Auto) 0.8 10^3/uL (0.2-0.9) 07/15/22 11:35 Eos # (Auto) 0.2 10^3/uL (0.0-0.8) 07/15/22 11:35 Baso # (Auto) 0.0 10^3/uL (0.0-0.1) 07/15/22 11:35 Nucleated RBC % (auto) 0 % 07/15/22 11:35 Nucleated RBCs # 0.0 /100WBC 07/15/22 11:35 Rubella IgG Antibody 226.7 IU/mL (0.0-10.0) H 07/15/22 15:07 Vitals Last Vital Signs Temp 97.2 F L 07/16/22 15:15 Pulse 75 07/17/22 04:00 Resp 16 07/17/22 04:00 BP 108/61 07/17/22 04:00 Pulse Ox 97 07/17/22 04:00 O2 Del Method 07/17/22 04:00 Discharge Plan Discharge Patient Disposition: Home Condition: Stable Prescriptions: New hydrocodone-acetaminophen 5-325 mg Tablet 1 tab PO Q6H PRN (Reason: Moderate To Severe Pain) Qty: 20 0RF ferrous sulfate 325 mg (65 mg iron) tablet,delayed release (DR/EC) 325 mg PO DAILY Qty: 30 0RF ibuprofen 800 mg Tablet 800 mg PO TID Qty: 60 0RF -U 106.5-1 mg Capsule 1 cap PO DAILY Qty: 30 0RF Continued fluticasone propionate 50 mcg/actuation spray,suspension 1 spray intranasal BID Qty: 16 3RF Rx Instructions: administer into each nostril loratadine 10 mg capsule 10 mg PO DAILY Qty: 30 5RF sertraline 50 mg tablet 50 mg PO DAILY Discharge Orders: Discharge Order (Routine); Ordered 07/17/22 Ordered By: Lul Trotter Referrals: Lul Trotter MD [Primary Care Provider] - 6 Weeks Discharge Diet: Regular Discharge Activity: Resume usual activity Patient Instructions: Depression (DC), Bleeding (DC), Preeclampsia and Eclampsia After Delivery (GEN), OB Discharge Report, OB Food/Drug Interaction Guide, Opioid Safety, OB [facility], OB Vaginal Deliveries Activity Restrictions/Additional Instructions: Nothing per vagina for 6 weeks. I would recommend showers for the next 6 weeks instead of baths to decrease risk for infection. Discharge Attestations Time Spent in Discharge Care*: greater than 30 min Quality Metrics Clinical Quality Measures [ No reported AMI, CVA or VTE this stay] Coding Level of Care Code Acute Chg FW DC note Diagnoses Spontaneous vaginal delivery O80
[2022-07-17 10:00] VITALS: BP 116/75; PULSE 84; RESP 17; TEMP 36.8
[2022-07-17 13:00] VITALS: BP 125/70; PULSE 84; RESP 17; TEMP 36.5; O2SAT 98
[2022-07-17 13:20] VITALS: BP 125/70; PULSE 84; RESP 17; TEMP 36.5; O2SAT 98
== END 2022-07-17 13:22 | disposition home or self-care (01) | DRG 807 ==
LOC: OPOB 00:54 → OBGYN 00:54
PROVIDERS: Admitting Provider Family Medicine; PCP Family Medicine; Visit Provider Family Medicine
DX: O99.344 Other mental disorders complicating childbirth (principal); Z37.0 Single live birth; F41.9 Anxiety disorder, unspecified; F32.A Depression, unspecified; O69.81X0 Labor and delivery complicated by cord around neck, without compression, not applicable or unspecified; N88.1 Old laceration of cervix uteri; Z3A.39 39 weeks gestation of pregnancy; Z87.59 Personal history of other complications of pregnancy, childbirth and the puerperium; Z79.899 Other long term (current) drug therapy; Z86.2 Personal history of diseases of the blood and blood-forming organs and certain disorders involving the immune mechanism; Z87.81 Personal history of (healed) traumatic fracture
CPT/HCPCS: 36415; 51702; 59025; 59409; 85025; 85027; 86762; 99211; J0595; J2405; J2795; J3010

== ENCOUNTER → 2024-12-17 12:13 | Outpatient (BNVA) | payer BC, SELFPAY | PROVIDERS: PCP Family Medicine; Visit Provider Family Medicine | DX: R53.81 Other malaise (principal); R53.83 Other fatigue; E55.9 Vitamin D deficiency, unspecified; Z51.81 Encounter for therapeutic drug level monitoring; R21 Rash and other nonspecific skin eruption; F41.9 Anxiety disorder, unspecified | CPT/HCPCS: 80053; 82306; 84439; 84443; 85025 ==